=== PATIENT | male | born 1975 | race African-American/Black ===

== ENCOUNTER 2016-10-29 19:56 | Emergency (ER) | payer OTHER ==
[~2016-10-29] VITALS: Ht 172.7 cm; Wt 72.6 kg
[2016-10-29] MEDS ORDERED: DILANTIN100 MG ORAL ×2 (20:06→21:43)
--- NOTE | 2016-10-29 20:29 | Emergency Room Report ---
History of Present Illness General Chief Complaint: Pain Source: EMS Present Illness HPI 41-year-old male presents to emergency Department complaining of running out of his seizure medication Dilantin yesterday. Patient states that he takes Dilantin twice daily. Patient denies history of seizure today. Patient also reports 8/10 severity pain localized to the plantar aspect of the feet bilaterally. Patient also complains of pain and swelling in the left fourth finger x3 days. She states that he hurt his hand while working on someone's car 3 days ago. Reports erythema, swelling and inability to straighten the left fourth finger. Patient denies nausea, vomiting, fevers, chills. Patient reports that he has been doing moderate walking around barefoot, as he is currently between housing. Patient denies swelling of the calves or feet. Pt. is UTD with tetanus. Denies numbness tingling or loss of sensation or gross motor movements of the extremities, incontinence of bowel or bladder. Denies CP , Palpitations, LOC, AMS, dizziness, Changes in Vision, Sensation, paresthesias , or a sudden severe headache. Allergies: Coded Allergies: No Known Allergies (Unverified , 10/29/16) Patient History Past Medical History: see triage record Past Surgical History: none Pertinent Family History: none Immunizations: UTD Reviewed Nursing Documentation: PMH: Agreed, PSxH: Agreed Nursing Documentation-PMH Past Medical History: No History, Except For Hx Seizures: Yes Review of Systems All Other Systems: negative except mentioned in HPI Physical Exam Vital Signs Date Time Temp Pulse Resp B/P Pulse Ox O2 Delivery O2 Flow Rate FiO2 10/29/16 20:02 98.1 60 16 128/70 99 Room Air Sp02 EP Interpretation: reviewed, normal General Appearance: no apparent distress, alert, GCS 15, non-toxic Head: normocephalic, atraumatic Eyes: bilateral eye PERRL, bilateral eye normal inspection ENT: hearing grossly normal, normal pharynx, no angioedema, normal voice Neck: full range of motion, supple/symm/no masses Respiratory: chest non-tender, lungs clear, normal breath sounds, speaking full sentences Cardiovascular #1: regular rate, rhythm, no edema Gastrointestinal: normal bowel sounds, non tender, soft, no guarding, no rebound Rectal: deferred Genitourinary: normal inspection, no CVA tenderness Musculoskeletal: back normal, gait/station normal, normal range of motion, no calf tenderness, swelling - to the left DIP of the 4th finger. inability to extend finger. pt states acute onset x 3 days. TTP, no increased temperature to palpation. Neurologic: alert, oriented x3, responsive, motor strength/tone normal, sensory intact, speech normal Psychiatric: judgement/insight normal, memory normal, mood/affect normal, no suicidal/homicidal ideation Skin: normal color, no rash, warm/dry, well hydrated, other - erythema and mild increased TTP to the bilateral anterior ankles and shins, no posterior erythema or TTP, mild increased Temperature to palpation suspicious for PAD or cellulitis. Pt. also has non thermal blisters to the plantar aspect of the feet bilaterally, no evidence of erythema or seocndary infection, skin is dry and flaky. Lymphatic: no adenopathy Medical Decision Making PA Attestation Dr. Lopez is my supervising Physician whom patient management has been discussed with. Diagnostic Impression: Primary Impression: Encounter for medication refill Additional Impressions: Cellulitis Qualified Codes: L03.115 - Cellulitis of right lower limb Non-thermal blister of foot Qualified Codes: S90.829A - Blister (nonthermal), unspecified foot, initial encounter ER Course 41-year-old male presents to emergency Department complaining of running out of his seizure medication Dilantin yesterday. Patient states that he takes Dilantin twice daily. Patient denies history of seizure today. Patient also reports 8/10 severity pain localized to the plantar aspect of the feet bilaterally. Patient also complains of pain and swelling in the left fourth finger x3 days. She states that he hurt his hand while working on someone's car 3 days ago. Reports erythema, swelling and inability to straighten the left fourth finger. Patient denies nausea, vomiting, fevers, chills. Patient reports that he has been doing moderate walking around barefoot, as he is currently between housing. Ddx considered but are not limited to: drug seeking, OD, fracture, cellulitis, tenosynovitis Vital signs: are WNL, pt. is afebrile, non-tachycardic, NAD. H&PE are most consistent with need for medication refill, possible bony injury or tenosynovitis to the left 4th digit, and mild cellulitis of the anterior shins bilaterally. ORDERS: - X-ray Left hand 3 views: No fracture, dislocation, or soft tissue injury, obvious bony lesion, not suspicious for acute injury- per soft read in the ED by Dr. Lopez. ED INTERVENTIONS: D/W pt. the results of his imaging, also gave pt. resources for free/reduced cost health clinics for follow up and a list for transitional housing resources. DISCHARGE: At this time pt. is stable for d/c to home. Will provide printed patient care instructions, and any necessary prescriptions. Care plan and follow up instructions have been discussed with the patient prior to discharge. Last Vital Signs Date Time Temp Pulse Resp B/P Pulse Ox O2 Delivery O2 Flow Rate FiO2 10/29/16 20:02 98.1 60 16 128/70 99 Room Air Disposition: HOME, SELF-CARE Condition: Stable Scripts Acetaminophen* (TYLENOL EXTRA STRENGTH*) 500 Mg Tablet 500 MG ORAL Q6H, #30 TAB 0 Refills Prov: Anna Souza 10/29/16 Cephalexin* (KEFLEX*) 500 Mg Capsule 500 MG ORAL EVERY 12 HOURS for 7 Days, #14 CAP 0 Refills Prov: Anna Souza 10/29/16 Phenytoin Sodium Extended* (DILANTIN*) 100 Mg Capsule 200 MG ORAL TWICE A DAY, #60 CAP 0 Refills Prov: Anna Souza 10/29/16 Referrals: [facility],REFERRING (PCP) Patient Instructions: Cellulitis, [id number], Medicine Refill at the Emergency Department Additional Instructions: Take medications as directed. Follow up with PCP in 3-5 days Return sooner to ED if new symptoms occur, or current symptoms become worse. *!* Review provided list of free or reduced cost health clinics for follow up, and List of transitional housing *!* - Please note that this Emergency Department Report was dictated using [employer] pilot technology software, occasionally this can lead to erroneous entry secondary to interpretation by the dictation equipment. Anna Souza Oct 29, 2016 20:29
[2016-10-29] MEDS ORDERED: TYLENOL EXTRA500 MG ORAL (21:43)
[2016-10-29] MEDS ORDERED: CEPHALEXIN500 MG ORAL (21:43)
[2016-10-29 21:57] VITALS: BP 145/61
--- NOTE | 2016-10-30 10:23 | Diagnostic Imaging Report ---
Indication: pain Findings: 3 views of the left hand were obtained. There is an unusual fracture of the fourth middle phalange. The fracture does not appear acute. There is a fair amount of sclerosis as well as hypertrophy which may be a consequence of healing. Soft tissue swelling of the digit is demonstrated. Patient presents for pain presumably with regard to this digit. The possibility of superimposed infection should be considered. Consider evaluation with cross-sectional imaging such as MR or CT as warranted. Impression: An unusual old fracture of the fourth middle phalange is not well demonstrated on the current study. Consider CT or MRI for further evaluation especially if there is concern for superimposed infection.
== END 2016-10-29 21:57 | disposition home or self-care (01) ==
LOC: EDBD 19:56 → EMR 20:20 → CANBEDREQ 21:38 → EMR 21:57
DX: L03.115 Cellulitis of right lower limb (principal); M89.9 Disorder of bone, unspecified; Z76.0 Encounter for issue of repeat prescription
CPT/HCPCS: 99284

== ENCOUNTER 2016-10-30 23:06 | Emergency (ER) | payer OTHER ==
[~2016-10-30] VITALS: Ht 172.7 cm; Wt 68.0 kg
[~2016-10-30 23:06] MED LIST: CEPHALEXIN500 MG ORAL; DILANTIN100 MG ORAL; TYLENOL EXTRA500 MG ORAL
[2016-10-31] MEDS ORDERED: PENICILLIN V P500 MG ORAL (00:38)
[2016-10-31 00:55] VITALS: BP 122/82
[2016-10-31 00:58] VITALS: BP 122/82
--- NOTE | 2016-10-31 02:01 | Emergency Room Report ---
History of Present Illness General Chief Complaint: General Complaint Source: Patient Present Illness HPI Patient is a 41-year-old male who presented after increased pain to his teeth. Patient reported having some infection and to the left upper portion of his mouth. Had gradual onset of symptoms. Patient was brought in by ambulance. He denies other complaints. Allergies: Coded Allergies: No Known Allergies (Unverified , 10/29/16) Patient History Past Medical History: see triage record, seizures Reviewed Nursing Documentation: PMH: Agreed, PSxH: Agreed Nursing Documentation-PMH Hx Seizures: Yes Review of Systems All Other Systems: negative except mentioned in HPI Physical Exam Vital Signs Date Time Temp Pulse Resp B/P Pulse Ox O2 Delivery O2 Flow Rate FiO2 10/30/16 23:16 97.0 78 16 116/78 96 Room Air Sp02 EP Interpretation: reviewed, normal General Appearance: normal inspection, well appearing, no apparent distress, alert, GCS 15 Head: atraumatic ENT: normal ENT inspection, hearing grossly normal, normal voice Neck: normal inspection, full range of motion, supple, no bony tend Respiratory: normal inspection, lungs clear, normal breath sounds, no respiratory distress, no retraction, no wheezing Cardiovascular #1: regular rate, rhythm, no edema Gastrointestinal: normal inspection, normal bowel sounds, non tender, soft, no guarding, no hernia Genitourinary: no CVA tenderness Musculoskeletal: normal inspection, back normal, normal range of motion Neurologic: normal inspection, alert, responsive, speech normal Psychiatric: normal inspection, judgement/insight normal, mood/affect normal Skin: normal inspection, normal color, no rash Medical Decision Making Diagnostic Impression: Primary Impression: Dental infection ER Course Patient presented for tooth pain. Differential diagnosis included was not limited to dental fracture, impacted molar, Dino's angina, apical abscess, sinusitis among others. Patient's benign exam and does not appear to require any further imaging or laboratory testing at this time. Patient was given prescription for antibiotics.The patient is advised to follow up with dentist in 1-2 days. Patient is advised to return if any worsening condition or if any changes in status that are concerning. Last Vital Signs Date Time Temp Pulse Resp B/P Pulse Ox O2 Delivery O2 Flow Rate FiO2 10/31/16 00:58 97.0 84 16 122/82 98 Room Air Status: improved Disposition: HOME, SELF-CARE Condition: Stable Scripts Penicillin V Potassium* (PENVK*) 500 Mg Tablet 500 MG ORAL TWICE A DAY, #14 TAB Prov: Juan Nails 10/31/16 Patient Instructions: Dental Caries Juan Nails Oct 31, 2016 02:01
== END 2016-10-31 00:59 | disposition home or self-care (01) ==
LOC: EDBD 23:06 → EMR 23:26
DX: K04.7 Periapical abscess without sinus (principal)
CPT/HCPCS: 99283